=== PATIENT | female | born 1955 | race Caucasian/White ===

== ENCOUNTER 2019-11-29 13:03 | Emergency (ER) | payer BC ==
[~2019-11-29] VITALS: Ht 165.1 cm; Wt 79.6 kg
[2019-11-29 13:36] VITALS: BP 140/75
== END 2019-11-29 15:33 | disposition home or self-care (01) ==
LOC: ER 13:04
DX: M25.511 Pain in right shoulder (principal); R07.81 Pleurodynia; Z88.8 Allergy status to other drugs, medicaments and biological substances; W18.39XA Other fall on same level, initial encounter; Y93.89 Activity, other specified; Y92.89 Other specified places as the place of occurrence of the external cause; Y99.8 Other external cause status
CPT/HCPCS: 71111; 72070; 73030; 99284

== ENCOUNTER 2022-06-14 20:09 | Emergency (ER) | payer BC, MEDICARE ==
[~2022-06-14] VITALS: Ht 165.1 cm; Wt 85.9 kg
[~2022-06-14 20:09] MED LIST: CYCL-1 PO; ONDA4TAB12 PO
[2022-06-14 20:35] LABS: BASOPHILS % (AUTO) 0.3 % (0-1); EOSINOPHILS # (AUTO) 0.2 X10'3 (0-0.9); EOSINOPHILS % (AUTO) 1.8 % (0-6); HEMATOCRIT 39.2 % (35.0-45.0); HEMOGLOBIN 13.3 g/dl (12.0-16.0); LYMPHOCYTES # (AUTO) 3.1 X10'3 (1.1-4.8); LYMPHOCYTES % (AUTO) 24.2 % (21-51); MEAN CORPUSCULAR HEMOGLOBIN 29.7 PG (27.0-31.0); MEAN CORPUSCULAR HGB CONC 33.9 g/dL (33.0-36.5); MEAN CORPUSCULAR VOLUME 87.4 FL (78-98); MEAN PLATELET VOLUME 6.6 FL (7.4-10.4); MONOCYTES # (AUTO) 0.7 X10'3 (0-0.9); MONOCYTES % (AUTO) 5.6 % (2-12); NEUTROPHILS # (AUTO) 8.7 X10'3 (1.8-7.7); NEUTROPHILS % (AUTO) 68.1 % (42-75); PLATELET COUNT 290 X10'3 (140-440); RED BLOOD COUNT 4.49 X10'6 (4.20-5.60); RED CELL DISTRIBUTION WIDTH 14.2 % (11.5-14.5); WHITE BLOOD COUNT 12.8 X10'3 (4.5-11.0)
[2022-06-14 20:38] LABS: CLARITY,URINE CLEAR (Clear); COLOR,URINE YELLOW (Yellow); GLUCOSE, URINE NEGATIVE (Neg); KETONES,URINE NEGATIVE (Neg); LEUKOCYTE ESTERASE ,URINE NEGATIVE (Neg); NITRITES, URINE NEGATIVE (Neg); OCCULT BLOOD,URINE SMALL (Neg); PH,URINE 5.5 (4.8-8.0); PROTEIN,URINE NEGATIVE (Neg); UROBILINOGEN,URINE 0.2 E.U/dL (0.2-1.0)
[2022-06-14 20:47] LABS: ALANINE AMINOTRANSFERASE 22 U/L (12-78); ALBUMIN 3.6 G/DL (3.4-5.0); ALKALINE PHOSPHATASE 111 IU/L (46-116); ANION GAP 11 (8-16); ASPARTATE AMINO TRANSFERASE 13 U/L (10-37); BILIRUBIN,TOTAL 0.5 MG/DL (0.1-1.0); BLOOD UREA NITROGEN 8 MG/DL (7-18); CALCIUM 8.9 MG/DL (8.5-10.1); CHLORIDE 103 MMOL/L (99-107); GLUCOSE 108 MG/DL (70-104); LIPASE 79 U/L (73-393); POTASSIUM 3.5 MMOL/L (3.5-5.1); SODIUM 139 MMOL/L (135-145); TOTAL CARBON DIOXIDE 25.2 MMOL/L (24-32); TOTAL PROTEIN 7.3 G/DL (6.4-8.2); eGFR 72 ML/MIN
[2022-06-14 20:57] LABS: URINE HCG NEGATIVE (NEG)
[2022-06-14 21:00] LABS: UA COLLECTION TYPE CLN CATCH MIDSTREAM
[2022-06-14 21:06] LABS: RBC,URINE 0-2 /HPF (0-2); WBC,URINE 0-4 /HPF (0-4)
[2022-06-14 21:07] LABS: BACTERIA,URINE NONE SEEN /HPF (Neg); MUCUS STRANDS NONE SEEN /LPF (Neg); SQUAMOUS EPITHELIAL CELL,UR NONE SEEN /LPF (FEW)
[2022-06-14] MEDS ORDERED: ringers solution, lactated 1000ml IV soln IV ONE (22:30)
[2022-06-15 00:50] VITALS: BP 140/87
== END 2022-06-15 00:30 | disposition home or self-care (01) ==
LOC: ER 20:10
DX: R10.9 Unspecified abdominal pain (principal); R19.7 Diarrhea, unspecified; J45.909 Unspecified asthma, uncomplicated; Z88.1 Allergy status to other antibiotic agents; Z79.899 Other long term (current) drug therapy
CPT/HCPCS: 36415; 74176; 80053; 81001; 81025; 83690; 85025; 96360; 99284; J7120

== ENCOUNTER 2023-05-16 11:17 | Emergency (ER) | payer BC, MEDICARE ==
[~2023-05-16] VITALS: Ht 167.6 cm; Wt 89.5 kg
[2023-05-16 11:48] VITALS: TEMP 97.6
[2023-05-16] MEDS ORDERED: diazepam inj 5 MG/ML inj. IM ONE (13:05)
[2023-05-16] MEDS ORDERED: ketorolac tromethamine 15mg/ml inj. IM ONE (13:05)
[2023-05-16] MEDS ORDERED: NAPR-1154 PO (13:09)
[2023-05-16] MEDS ORDERED: CYCL-1 PO (13:09)
== END 2023-05-16 13:38 | disposition home or self-care (01) ==
LOC: ER 11:18
DX: S39.012A Strain of muscle, fascia and tendon of lower back, initial encounter (principal); J45.909 Unspecified asthma, uncomplicated; Z88.1 Allergy status to other antibiotic agents; Z79.899 Other long term (current) drug therapy; Z90.49 Acquired absence of other specified parts of digestive tract; Z90.710 Acquired absence of both cervix and uterus; X50.0XXA Overexertion from strenuous movement or load, initial encounter; Y93.89 Activity, other specified; Y92.89 Other specified places as the place of occurrence of the external cause; Y99.8 Other external cause status
CPT/HCPCS: 96372; 99284; J1885; J3360

== ENCOUNTER 2023-05-17 18:28 | Emergency (ER) | payer BC ==
[~2023-05-17] VITALS: Ht 167.6 cm; Wt 86.0 kg
[~2023-05-17 18:28] MED LIST changes: +NAPR-1154 PO
[2023-05-17 19:23] VITALS: TEMP 97.9
[2023-05-17] MEDS ORDERED: diazepam inj 5 MG/ML inj. IM ONE (20:20)
[2023-05-17] MEDS ORDERED: ketorolac trometh. 30mg/ml inj. IM ONE (20:20)
[2023-05-17 20:48] VITALS: BP 141/83; PULSE 91; RESP 22; O2SAT 99
== END 2023-05-17 21:18 | disposition home or self-care (01) ==
LOC: ER 18:28
DX: S39.012D Strain of muscle, fascia and tendon of lower back, subsequent encounter (principal); J45.909 Unspecified asthma, uncomplicated; X58.XXXD Exposure to other specified factors, subsequent encounter; Z88.1 Allergy status to other antibiotic agents; Z79.899 Other long term (current) drug therapy
CPT/HCPCS: 96372; 99284; J1885; J3360

== ENCOUNTER 2023-05-19 15:15 | Emergency (ER) | payer BC, MEDICARE ==
[~2023-05-19] VITALS: Ht 166.4 cm; Wt 88.6 kg
[2023-05-19 16:57] VITALS: BP 156/79; PULSE 109; TEMP 98.5; O2SAT 98
[2023-05-19] MEDS ORDERED: triamcinolone acetonide 40mg/ml inj IM ONE (17:35)
[2023-05-19] MEDS ORDERED: HYDROcodone/acetaminophen 10/325mg tab PO ONE (18:25)
[2023-05-19] MEDS ORDERED: ketorolac trometh inj. 60 MG/2 ML VIAL IM ONE (18:25)
[2023-05-19 18:34] VITALS: RESP 19
== END 2023-05-19 19:01 | disposition home or self-care (01) ==
LOC: ER 15:16
DX: M62.830 Muscle spasm of back (principal); M54.6 Pain in thoracic spine; J45.909 Unspecified asthma, uncomplicated; Z90.49 Acquired absence of other specified parts of digestive tract; Z90.710 Acquired absence of both cervix and uterus; Z88.1 Allergy status to other antibiotic agents; Z79.899 Other long term (current) drug therapy
CPT/HCPCS: 72128; 96372; 99285; J1885; J3301

== ENCOUNTER 2023-10-22 06:08 | Observation (INO) | payer BC, MEDICARE ==
[2023-10-17 12:35] LABS: BASOPHILS % (AUTO) 0.6 % (0-1); EOSINOPHILS # (AUTO) 0.2 X10'3 (0-0.9); EOSINOPHILS % (AUTO) 2.4 % (0-6); LYMPHOCYTES # (AUTO) 2.5 X10'3 (1.1-4.8); LYMPHOCYTES % (AUTO) 31.6 % (21-51); MEAN CORPUSCULAR HEMOGLOBIN 29.1 PG (27.0-31.0); MEAN CORPUSCULAR HGB CONC 33.2 g/dL (33.0-36.5); MEAN CORPUSCULAR VOLUME 87.5 FL (78-98); MEAN PLATELET VOLUME 6.3 FL (7.4-10.4); MONOCYTES # (AUTO) 0.5 X10'3 (0-0.9); MONOCYTES % (AUTO) 6.4 % (2-12); NEUTROPHILS # (AUTO) 4.7 X10'3 (1.8-7.7); PRE OP HEMOGLOBIN 13.6 g/dL (12.0-16.0); PRE OP PLATELET COUNT 348 X10'3 (140-440); PRE OP WHITE BLOOD COUNT 7.9 10'3 (4.8-10.8); RED BLOOD COUNT 4.68 X10'6 (4.20-5.60); RED CELL DISTRIBUTION WIDTH 13.5 % (11.5-14.5)
[2023-10-17 12:57] LABS: ALBUMIN 3.5 G/DL (3.4-5.0); ALBUMIN/GLOBULIN RATIO 0.9 (1.1-1.5); ALKALINE PHOSPHATASE 110 IU/L (46-116); BLOOD UREA NITROGEN 7 MG/DL (7-18); CALCIUM 8.7 MG/DL (8.5-10.1); CHLORIDE 102 MMOL/L (99-107); PRE OP ALT 19 U/L (30-65); PRE OP ANION GAP 7 (8-16); PRE OP AST 12 U/L (10-37); PRE OP BILIRUB, TOTAL 0.6 MG/DL (0.0-1.0); PRE OP GLUCOSE 95 MG/DL (70-104); PRE OP SODIUM 140 MMOL/L (135-145); TOTAL CARBON DIOXIDE 31.5 MMOL/L (24-32); TOTAL PROTEIN 7.6 G/DL (6.4-8.2); eGFR 84 ML/MIN
[2023-10-17 13:01] LABS: PRE OP POTASSIUM 3.1 MMOL/L (3.4-5.1)
[2023-10-22] VITALS (34 sets, daily range): BP systolic 142–170; BP diastolic 71–96; PULSE 77–117; RESP 13–19; TEMP 97.6–98.8; O2SAT 87–100
[~2023-10-22] VITALS: Ht 165.1 cm; Wt 88.5 kg
[2023-10-22] MEDS: cefazolin 2gm/D5W 100mL 100 ML IV ONE (05:30)
[2023-10-22] MEDS: famotidine 20mg tablet PO ONE (05:30)
[2023-10-22] MEDS: ringers solution, lacted 1,000 ML IV SCH ×2 (05:30→08:25)
[~2023-10-22 06:08] MED LIST changes: +CELE-127 PO; -CYCL-1 PO; +ESOM20CA38 PO; +LEVO100T9 PO; +LORA10TA7 PO; +MONT-40 PO; +MVI; -NAPR-1154 PO; +OMEP20CA16 PO; -ONDA4TAB12 PO; +OXYB10TA30 PO; +VITAMIN D
[2023-10-22] MEDS ORDERED: BUPIVAcaine/PF 2.5mg/ml (0.25%) 10ml vial ONE (06:45)
[2023-10-22] MEDS ORDERED: LIDOcaine 1% 30ml preserv. free vial ONE (06:45)
[2023-10-22 06:54] LABS: ISTAT CREATININE 0.7 mg/dL (0.6-1.1); ISTAT HGB 13.9 g/dl (12.0-16.0); ISTAT IONIZED CALCIUM 1.24 mmol/L (1.03-1.32); ISTAT K 3.8 mmol/L (3.5-5.1); POC BUN/CREATININE RATIO 11.4 (6.6-38.0)
[2023-10-22] MEDS ORDERED: sevoflurane 250ml liquid IH ONE (08:01)
[2023-10-22] MEDS ORDERED: midazolam 1 mg/ML 2ml injection ONE (08:06)
[2023-10-22] MEDS ORDERED: fentaNYL /PF 50mcg/ml 5ml ampule ONE (08:07)
[2023-10-22] MEDS ORDERED: proCHLORperazine 10 MG/2 ml inj IV PRN (08:25)
[2023-10-22] MEDS ORDERED: morphine 2 MG/ML inj. syringe IV PRN (08:25)
[2023-10-22] MEDS ORDERED: meperidine/PF 25mg/ml syringe IV PRN ×3 (08:25)
[2023-10-22] MEDS ORDERED: labetalol 20mg/4ml (5mg/ml) syringe IV PRN (08:25)
[2023-10-22] MEDS ORDERED: hydrALAZINE 20mg/ml inj. IV PRN (08:25)
[2023-10-22] MEDS ORDERED: ondansetron/PF 4mg/2ml inj IV PRN ×2 (08:25→10:05)
[2023-10-22] MEDS ORDERED: morphine 4 MG/ML inj SYRINge IV PRN (08:25)
[2023-10-22] MEDS: BUPIVAcaine/PF 2.5mg/ml (0.25%) 10ml vial IJ ONE (08:45)
[2023-10-22] MEDS: LIDOcaine 1% 30ml preserv. free vial IJ ONE (08:47)
[2023-10-22] MEDS ORDERED: dexamethasone sod phosphate 4mg/ml inj. ONE (09:26)
[2023-10-22] MEDS ORDERED: ondansetron/PF 4mg/2ml inj ONE (09:26)
[2023-10-22] MEDS ORDERED: propofol inj 20 ML IV ONE (09:27)
[2023-10-22] MEDS ORDERED: rocuronium 10mg/ml inj IV ONE ×2 (09:27)
[2023-10-22] MEDS ORDERED: LIDOcaine 2% (20mg/ml) 5ml vial ONE (09:27)
[2023-10-22] MEDS ORDERED: neostigmine methylsulfate 1 MG/ML 10ml vial ONE (09:56)
[2023-10-22] MEDS ORDERED: glycopyrrolate 0.2mg/ml inj ONE (09:57)
[2023-10-22] MEDS ORDERED: sugammadex 200mg/2ml injection IV ONE (09:57)
[2023-10-22] MEDS ORDERED: naloxone 0.4 mg/ml inj IV PRN (10:05)
[2023-10-22] MEDS: ketorolac tromethamine 15mg/ml inj. IV ONE (10:39)
[2023-10-22] MEDS: acetaminophen 1,000mg/100ml IV 100 ML IV ONE (10:40)
[2023-10-22] MEDS: HYDROmorph/NS 0.2 mg/ml PCA 100 ML IV SCH (10:59)
[2023-10-22] MEDS: normal saline 1000ml 1,000 ML IV SCH (16:30)
[2023-10-22] MEDS: celeCOXIB 100mg capsule PO SCH (20:00)
[2023-10-22] MEDS: heparin, porcine 5000 units/ml vial SQ SCH (23:24)
[2023-10-22] MEDS: loratadine 10mg tablet PO PRN (23:30)
[2023-10-23 07:00] VITALS: BP 158/85; PULSE 110; RESP 18; TEMP 98.8; O2SAT 93
[2023-10-23] MEDS ORDERED: oxyCODONE/APAP 5-325mg tablet PO PRN (07:35)
[2023-10-23] MEDS: levoTHYROXINE 100mcg tablet PO SCH (08:01)
[2023-10-23] MEDS: montelukast 10mg tablet PO SCH (08:01)
[2023-10-23] MEDS: oxybutynin 5mg tablet PO SCH (08:02)
[2023-10-23] MEDS ORDERED: COVID-19 VAC, BIVALENT (PFIZER)/PF 30 MCG/0.3 ML VIAL IMVAC ONE (10:00)
[2023-10-23] MEDS: PCA WASTE DOCUMENTATION 1 MG ML MC SCH (10:52)
[2023-10-23 11:00] VITALS: BP 153/80; PULSE 120; RESP 14; TEMP 98; O2SAT 95
[2023-10-23] MEDS ORDERED: PER5325T PO (11:01)
[2023-10-23 11:36] VITALS: RESP 15
[2023-10-23] MEDS: oxyCODONE/APAP 5-325mg tablet PO ONE (11:36)
== END 2023-10-23 11:40 | disposition home or self-care (01) ==
LOC: PAS 06:08 → PACU 10:10 → ORTHO 4S 14:33
PROVIDERS: ADMIT Surgery; ATTEND Surgery
DX: K44.9 Diaphragmatic hernia without obstruction or gangrene (principal); J45.909 Unspecified asthma, uncomplicated; E03.9 Hypothyroidism, unspecified; K21.9 Gastro-esophageal reflux disease without esophagitis; Z79.899 Other long term (current) drug therapy
CPT/HCPCS: 36415; 43282; 71045; 80047; 80053; 82948; 85025; 93005; 96365; 96366; 96372; 96375; C1781; G0378; J0131; J0690; J1100; J1170; J1644; J1885; J2250; J2405; J2704; J2710; J3010; J3490; J7030; J7120; S2900; 0.01; A4615; A4618

== ENCOUNTER 2024-02-01 13:13 | Emergency (ER) | payer BC ==
[~2024-02-01] VITALS: Ht 165.1 cm; Wt 86.0 kg
[~2024-02-01 13:13] MED LIST changes: +PER5325T PO
[2024-02-01] MEDS: magnesium 2GM in 50ml NS 50 ML IV ONE (15:32)
[2024-02-01 15:52] LABS: ALBUMIN 3.4 G/DL (3.4-5.0); ANION GAP 4 (8-16); BLOOD UREA NITROGEN 4 MG/DL (7-18); BUN/CREATININE RATIO 5.6 (10.0-20.0); CALCIUM 8.4 MG/DL (8.5-10.1); CHLORIDE 105 MMOL/L (99-107); CREATININE 0.72 MG/DL (0.40-0.90); GLUCOSE 114 MG/DL (70-104); POTASSIUM 3.6 MMOL/L (3.5-5.1); SODIUM 141 MMOL/L (135-145); TOTAL CARBON DIOXIDE 31.6 MMOL/L (24-32); eCRCL 69 ML/MIN; eGFR 81 ML/MIN
[2024-02-01 16:02] VITALS: PULSE 100; RESP 16; O2SAT 99
[2024-02-01] MEDS: albuterol 2.5 MG/3 ML nebule NEB ONE ×2 (16:02→19:25)
[2024-02-01] MEDS: ipratropium/albuterol 3ml nebule NEB ONE (16:02)
[2024-02-01 16:16] VITALS: PULSE 98; RESP 18; O2SAT 99
[2024-02-01 16:47] LABS: BASOPHILS # (AUTO) 0.1 X10'3 (0-0.2); BASOPHILS % (AUTO) 0.6 % (0-1); EOSINOPHILS # (AUTO) 0.3 X10'3 (0-0.9); EOSINOPHILS % (AUTO) 2.7 % (0-6); HEMATOCRIT 41.6 % (35.0-45.0); HEMOGLOBIN 13.8 g/dl (12.0-16.0); LYMPHOCYTES # (AUTO) 3.6 X10'3 (1.1-4.8); MEAN CORPUSCULAR HEMOGLOBIN 29.3 PG (27.0-31.0); MEAN CORPUSCULAR HGB CONC 33.2 g/dL (33.0-36.5); MEAN CORPUSCULAR VOLUME 88.1 FL (78-98); MEAN PLATELET VOLUME 6.5 FL (7.4-10.4); MONOCYTES # (AUTO) 0.8 X10'3 (0-0.9); NEUTROPHILS # (AUTO) 6.4 X10'3 (1.8-7.7); NEUTROPHILS % (AUTO) 57.7 % (42-75); PLATELET COUNT 300 X10'3 (140-440); RED BLOOD COUNT 4.72 X10'6 (4.20-5.60); RED CELL DISTRIBUTION WIDTH 15.5 % (11.5-14.5); WHITE BLOOD COUNT 11.1 X10'3 (4.5-11.0)
[2024-02-01 17:36] LABS: PRO BRAIN NATRIURETIC PEPTIDE 51 PG/ML (0-125)
[2024-02-01] MEDS ORDERED: methylPREDNISolone sod succ 125mg/2ml vial ONE (18:45)
[2024-02-01] MEDS: methylPREDNISolone sod succ 125mg/2ml vial IV ONE (19:26)
[2024-02-01 19:27] VITALS: PULSE 109; RESP 16; O2SAT 98
[2024-02-01 19:34] VITALS: TEMP 97.7
[2024-02-01 19:38] VITALS: PULSE 92; RESP 18; O2SAT 100
[2024-02-01] MEDS ORDERED: DEC4T PO (19:48)
[2024-02-01 19:59] VITALS: BP 165/88; PULSE 108; RESP 18; O2SAT 98
[2024-02-01 20:01] LABS: RHEUM FACTOR QUAL REFLEX TITER NEGATIVE (Neg)
== END 2024-02-01 19:58 | disposition home or self-care (01) ==
LOC: ER 13:14
DX: J45.901 Unspecified asthma with (acute) exacerbation (principal); Z88.1 Allergy status to other antibiotic agents; Z91.012 Allergy to eggs; Z91.030 Bee allergy status; Z79.899 Other long term (current) drug therapy; Z79.2 Long term (current) use of antibiotics; Z90.49 Acquired absence of other specified parts of digestive tract; Z90.710 Acquired absence of both cervix and uterus
CPT/HCPCS: 36415; 71045; 80048; 83880; 84484; 85025; 85651; 86038; 86430; 93005; 94640; 96365; 96375; 99285; J2919; J3475; 94760